=== PATIENT | female | born 2000 | race Caucasian/White ===

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

== ENCOUNTER 2022-06-07 06:50 | Inpatient (IN) | payer OTHER ==
[~2022-06-07] VITALS: Ht 167.6 cm; Wt 78.4 kg
[2022-06-07] VITALS (33 sets, daily range): BP systolic 102–163; BP diastolic 57–94
[2022-06-07] MEDS ORDERED: PRENTAB9 PO (07:16)
[2022-06-07] MEDS ORDERED: ACET325C5 PO (07:17)
[2022-06-07] MEDS ORDERED: LACTATED RINGER'S 1000 ML IV STA (07:51)
[2022-06-07] MEDS ORDERED: TRANEXAMIC ACID INJection 1,000 MG in NS 100 ML IV PRN (07:55)
[2022-06-07] MEDS ORDERED: OXYTOCIN DRIP 30 UNITS in IV 1 EA IV PRN ×4 (07:55)
[2022-06-07] MEDS ORDERED: METHYLERGONOVINE MALEATE 0.2MG/ML 1ML VIAL IM PRN (07:55)
[2022-06-07] MEDS ORDERED: LR 1,000 ML IV SCH (07:55)
[2022-06-07] MEDS ORDERED: LIDOCAINE 1% MDV 20ML VIAL INFIL PRN (07:55)
[2022-06-07] MEDS ORDERED: CARBOPROST TROMETHAMINE 250 MCG/ML AMP IM PRN (07:55)
[2022-06-07 09:43] LABS: HEMATOCRIT 35.8 % (36.0-47.0); HEMOGLOBIN 11.6 g/dl (12.0-15.5); MEAN CORPUSCULAR HEMOGLOBIN 28.5 pg (27.0-33.0); MEAN CORPUSCULAR HGB CONC 32.4 g/dl (32.0-36.5); PLATELET COUNT, AUTOMATED 223 10^3/uL (150-450); RED BLOOD COUNT 4.07 10^6/uL (4.00-5.40); WHITE BLOOD COUNT 12.9 10^3/uL (4.0-10.0)
[2022-06-07] MEDS ORDERED: ePHEDrine SULFATE 25 MG/5 ML(5MG/ML) SYRINGE IVP PRN (09:55)
[2022-06-07] MEDS ORDERED: FENTANYL/ROPIVACAINE/NACL BAG 100 ML EPIDURAL SCH (09:55)
[2022-06-07] MEDS ORDERED: LR 500 ML IV PRN (09:55)
[2022-06-07] MEDS ORDERED: EPIDURAL/PCA KEYS XX PRN (09:55)
[2022-06-07] MEDS ORDERED: diphenhydrAMINE 50MG/ML VIAL IV PRN (09:55)
[2022-06-07] MEDS ORDERED: NALOXONE INJ 0.4MG/1ML VIAL IV PRN (09:55)
[2022-06-07] MEDS ORDERED: ONDANSETRON 4MG 2ML VIAL IV PRN (09:55)
[2022-06-07] MEDS ORDERED: BUSP5TA PO (10:59)
[2022-06-07] MEDS ORDERED: METHYLERGONOVINE MALEATE 0.2 MG TAB PO PRN (14:35)
[2022-06-07] MEDS ORDERED: IBUPROFEN 600MG TAB PO PRN (14:35)
[2022-06-07] MEDS ORDERED: busPIRone 5 MG TAB PO PRN (14:35)
[2022-06-07] MEDS ORDERED: DIBUCAINE 1% OINTMENT 30GM TOP PRN (14:35)
[2022-06-07] MEDS ORDERED: ACETAMINOPHEN TAB 650MG DOSE (2X325MG) PO PRN (14:35)
[2022-06-07] MEDS ORDERED: DOCUSATE SODIUM 100MG CAPSULE PO PRN (14:35)
[2022-06-07] MEDS ORDERED: OXYTOCIN DRIP 30 UNITS in IV 1 EA IV SCH (14:35)
[2022-06-07] MEDS: IBUPROFEN 800 MG TAB PO PRN (17:59)
[2022-06-08] MEDS: IBUPROFEN 800 MG TAB PO PRN ×2 (02:46→17:41)
[2022-06-08 06:00] VITALS: BP 114/76
[2022-06-08] MEDS: PRENATAL VITAMINS CHEWABLE TABLET PO SCH (09:37)
[2022-06-08] MEDS: ACETAMINOPHEN 500 MG TAB PO PRN (17:43)
[2022-06-08 18:00] VITALS: BP 134/79
[2022-06-09] MEDS: ACETAMINOPHEN 500 MG TAB PO PRN (00:32)
[2022-06-09 06:00] VITALS: BP 130/92
[2022-06-09] MEDS: IBUPROFEN 800 MG TAB PO PRN (07:52)
[2022-06-09] MEDS: PRENATAL VITAMINS CHEWABLE TABLET PO SCH (08:12)
== END 2022-06-09 13:25 | disposition home or self-care (01) | DRG 807 ==
LOC: M LDO 06:50 → M LDI 07:54 → M OBS 17:30
PROVIDERS: ADMIT Advanced Practice Midwife; ATTEND Advanced Practice Midwife
PROC: 10E0XZZ Delivery of Products of Conception, External Approach (ICD-10-PCS; principal; 2022-06-07)
PROC: 0UQMXZZ Repair Vulva, External Approach (ICD-10-PCS; 2022-06-07)
DX: O71.82 Other specified trauma to perineum and vulva (principal); Z37.0 Single live birth; Z3A.39 39 weeks gestation of pregnancy; O69.1XX0 Labor and delivery complicated by cord around neck, with compression, not applicable or unspecified

== ENCOUNTER 2025-03-18 13:42 | Outpatient (CLI) | payer MEDICAID, OTHER ==
[~2025-03-18] VITALS: Ht 167.6 cm; Wt 87.0 kg
[~2025-03-18 13:42] MED LIST: ACET325C5 PO; BUSP5TA PO; PRENTAB9 PO
[2025-03-18] MEDS ORDERED: LAMO-18 PO (13:57)
[2025-03-18] MEDS ORDERED: HOME MED LIST COMPLETE! XX SCH (14:00)
[2025-03-18 14:10] VITALS: BP 115/66
[2025-03-18 15:11] VITALS: BP 101/64
[2025-03-18 15:27] LABS: APPEARANCE, URINE HAZY (CLEAR); BACTERIA, URINE AUTO NEGATIVE (NEGATIVE); BILIRUBIN, URINE AUTO NEGATIVE (NEGATIVE); BLOOD, URINE BLOOD NEGATIVE (NEGATIVE); GLUCOSE, URINE (UA) AUTO NEGATIVE (NEGATIVE); KETONE, URINE AUTO NEGATIVE (NEGATIVE); LEUKOCYTE ESTERASE, URINE AUTO NEGATIVE (NEGATIVE); MUCUS, URINE SMALL (NEGATIVE); NITRITE, URINE AUTO NEGATIVE (NEGATIVE); PROTEIN, URINE AUTO NEGATIVE (NEGATIVE); RBC, URINE AUTO 0 /HPF (0-3); SPECIFIC GRAVITY URINE AUTO 1.018 (1.002-1.035); SQUAMOUS EPITHELIAL CELL UR AU 7 /HPF (0-6); UROBILINOGEN, URINE AUTO 0.2 mg/dL (0.0-2.0); WBC, URINE AUTO 1 /HPF (0-3)
[2025-03-18 16:09] LABS: Trichomonas vaginalis (AMP) NOT DETECTED (NEGATIVE)
[2025-03-18 16:11] VITALS: BP 102/65
[2025-03-18 16:32] LABS: GC DNA AMPLIFICATION NEGATIVE (NEGATIVE)
== END 2025-03-18 16:48 | disposition home or self-care (01) ==
LOC: M LDO 13:42
PROVIDERS: ATTEND Advanced Practice Midwife
DX: O26.893 Other specified pregnancy related conditions, third trimester (principal); O26.853 Spotting complicating pregnancy, third trimester; O99.343 Other mental disorders complicating pregnancy, third trimester; M54.59 Other low back pain; R25.2 Cramp and spasm; F32.9 Major depressive disorder, single episode, unspecified; F41.9 Anxiety disorder, unspecified; Z3A.29 29 weeks gestation of pregnancy; Z88.1 Allergy status to other antibiotic agents; Z91.040 Latex allergy status
CPT/HCPCS: 59025; 81001; 87086; 87661; 87810; 87850; G0463